=== PATIENT | female | born 1995 | race Caucasian/White ===

== ENCOUNTER 2016-09-17 10:04 | Emergency (ER) | payer OTHER ==
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
== END 2016-09-17 11:18 | disposition home or self-care (01) ==
LOC: NAV ERS 10:04
DX: M25.512 Pain in left shoulder (principal); Z79.899 Other long term (current) drug therapy